=== PATIENT | male | born 1950 | race Caucasian/White ===

== ENCOUNTER 2019-05-14 08:20 | Inpatient (IN) | payer OTHER ==
[~2019-05-14] VITALS: Ht 170.2 cm; Wt 102.1 kg
[2019-06-02] MEDS ORDERED: NORVASC2.5 MG PO (12:16)
[2019-06-11] MEDS ORDERED: ELIQUIS2.5 MG PO (17:12)
[2019-06-11] MEDS ORDERED: DUI500 PO (17:12)
[2019-06-11] MEDS ORDERED: PERCOCET 5-3251 EACH PO (17:12)
== END 2019-06-11 20:42 | DRG 470 ==
LOC: SURG 06-02 07:30 → O/R 06-09 09:10 → SURG 06-09 16:15
PROVIDERS: ADMIT Orthopaedic Surgery
PROC: 0SR90J9 Replacement of Right Hip Joint with Synthetic Substitute, Cemented, Open Approach (ICD-10-PCS; principal; 2019-06-09 18:00)
DX: M16.11 Unilateral primary osteoarthritis, right hip (principal); D62 Acute posthemorrhagic anemia; M25.751 Osteophyte, right hip; M70.61 Trochanteric bursitis, right hip; E66.09 Other obesity due to excess calories; I10 Essential (primary) hypertension